=== PATIENT | male | born 1950 | race African-American/Black ===

== ENCOUNTER 2021-10-23 11:43 | Inpatient (IN) | payer OTHER ==
[2021-10-23 12:10] VITALS: BMI 31.3
[2021-10-23] MEDS ORDERED: SODIUM CHLORIDE 2,722 ML IV ONE (12:31)
[2021-10-23] MEDS ORDERED: PIPERACILLIN/TAZOB 4.5 GM 4.5 GM in DEXTROSE 5%-WATER 100 ML IVPB ONE (12:36)
[2021-10-23] MEDS ORDERED: VANCOMYCIN 1 GM in D5W (PRE-DOCKED) 1,000 MG/250 ML IVPB ONE (12:36)
[2021-10-23] MEDS ORDERED: PIPERACILLIN/TAZOB 4.5 GM 4.5 GM/100 ML BAG IVPB ONE (13:33)
[2021-10-23] MEDS ORDERED: VANCOMYCIN 1 GRAM (PRE-DOCKED) 1,000 MG/250 ML BAG IVPB ONE (13:33)
[2021-10-23 14:24] LABS: INR 1.26 (0.83-1.09); PROTHROMBIN TIME (PATIENT) 14.5 SEC (9.7-13.0)
[2021-10-23 14:27] LABS: ACTIVATED PTT 28.3 SECONDS (25.2-36.5)
[2021-10-23 14:52] LABS: LACTIC ACID 3.8 mmol/L (0.4-2.0)
[2021-10-23 14:54] LABS: HEMATOCRIT 32.5 % (35.4-49); HEMOGLOBIN 9.6 GM/dL (11.7-16.9); MCH 25.4 pg (25.7-33.7); MCHC 29.5 g/dl (32.0-35.9); MEAN CELL VOLUME 86.3 fl (80-96); MEAN PLT VOLUME 9.4 fl (7.5-11.1); PLATELET COUNT 315 10^3/uL (134-434); RBC 3.77 M/mm3 (4.00-5.60); RDW 20.1 % (11.9-15.9); WHITE BLOOD COUNT 21.2 K/mm3 (4.0-10.0)
[2021-10-23 15:05] LABS: CHLORIDE 115 mmol/L (98-107); SODIUM 148 mmol/L (136-145)
[2021-10-23 15:07] LABS: CALCIUM 9.3 mg/dL (8.5-10.1); CO2 25 mmol/L (21-32)
[2021-10-23 15:08] LABS: ALBUMIN 1.7 g/dl (3.4-5.0)
[2021-10-23 15:11] LABS: CREATININE 2.1 mg/dL (0.55-1.3); SGOT/AST 46 U/L (15-37)
[2021-10-23 15:12] LABS: BILIRUBIN,TOTAL 0.3 mg/dL (0.2-1); TOT PROT 8.4 g/dl (6.4-8.2)
[2021-10-23 15:13] LABS: ALK PHOS 170 U/L (45-117)
[2021-10-23 15:30] LABS: ANION GAP 8 MMOL/L (8-16); BLOOD UREA NITROGEN 135.3 mg/dL (7-18); GLUCOSE,RANDOM 586 mg/dL (74-106); SGPT/ALT 34 U/L (13-61)
[2021-10-23 15:37] LABS: ANISOCYTOSIS 1+; MACROCYTOSIS 1+
[2021-10-23] MEDS ORDERED: ACETAMINOPHEN 1000 MG/100 ML BAG IVPB PRN (16:11)
[2021-10-23] MEDS ORDERED: SODIUM CHLORIDE 1,000 ML IV SCH (16:15)
[2021-10-23] MEDS ORDERED: INSULIN SLIDING SCALE (NOVOLOG) 1 VIAL SQ SCH (16:30)
[2021-10-23] MEDS: PANTOPRAZOLE SODIUM 40 MG VIAL IVPUSH SCH (17:10)
[2021-10-23] MEDS ORDERED: INSULIN SLIDING SCALE (NOVOLOG) 1 VIAL SQ ONE ×2 (17:18→17:35)
[2021-10-23] MEDS ORDERED: PANTOPRAZOLE SODIUM 40 MG/100 ML BAG IVPB ONE (17:26)
[2021-10-23] MEDS: INSULIN SLIDING SCALE (NOVOLOG) 1 VIAL SQ SCH ×2 (17:42→22:45)
[2021-10-23] MEDS ORDERED: ACETAMINOPHEN INJECTION 100 ML IVPB ONE (18:29)
[2021-10-24] MEDS ORDERED: PIPERACILLIN/TAZOB 3.375 GM 3.375 GM/50 ML BAG IVPB ONE ×2 (04:22→09:27)
[2021-10-24] MEDS: PIPERACILLIN/TAZOB 3.375 GM 3.375 GM in DEXTROSE 5%-WATER - 50 ML IVPB SCH ×2 (04:38→09:31)
[2021-10-24 05:08] LABS: SARS-CoV-2 NAA Not Detected (Not Detected)
[2021-10-24 06:33] LABS: CHLORIDE 124 mmol/L (98-107); SODIUM 152 mmol/L (136-145)
[2021-10-24 06:36] LABS: CALCIUM 8.5 mg/dL (8.5-10.1)
[2021-10-24 06:37] LABS: ALBUMIN 1.5 g/dl (3.4-5.0); ANION GAP 6 MMOL/L (8-16); CO2 22 mmol/L (21-32); GLUCOSE,RANDOM 312 mg/dL (74-106)
[2021-10-24 06:40] LABS: SGOT/AST 26 U/L (15-37); SGPT/ALT 25 U/L (13-61)
[2021-10-24 06:41] LABS: BILIRUBIN,TOTAL 0.7 mg/dL (0.2-1)
[2021-10-24 06:43] LABS: HEMATOCRIT 27.1 % (35.4-49); HEMOGLOBIN 8.1 GM/dL (11.7-16.9); MCH 25.3 pg (25.7-33.7); MCHC 29.9 g/dl (32.0-35.9); MEAN CELL VOLUME 84.6 fl (80-96); MEAN PLT VOLUME 8.8 fl (7.5-11.1); PLATELET COUNT 417 10^3/uL (134-434); RBC 3.21 M/mm3 (4.00-5.60); RDW 19.8 % (11.9-15.9); WHITE BLOOD COUNT 21.4 K/mm3 (4.0-10.0)
[2021-10-24 06:50] LABS: ALK PHOS 122 U/L (45-117); BLOOD UREA NITROGEN 131.4 mg/dL (7-18)
[2021-10-24] MEDS ORDERED: SODIUM CHLORIDE 1,000 ML IV SCH ×2 (08:15→11:15)
[2021-10-24] MEDS: INSULIN SLIDING SCALE (NOVOLOG) 1 VIAL SQ SCH ×3 (08:42→18:38)
[2021-10-24] MEDS ORDERED: PANTOPRAZOLE SODIUM 40 MG/100 ML BAG IVPB ONE (09:27)
[2021-10-24] MEDS: PANTOPRAZOLE SODIUM 40 MG VIAL IVPUSH SCH (09:31)
[2021-10-24] MEDS ORDERED: COLLAGENASE CLOSTRIDIUM HIST. 30 GRAMS TUBE TP SCH (10:00)
[2021-10-24] MEDS ORDERED: MUPIROCIN 2% TOPICAL OINTMENT FOR DECOLONIZATION NS SCH (10:00)
[2021-10-24] MEDS: MEROPENEM 500 MG in DEXTROSE 5%-WATER 100 ML IVPB SCH ×2 (10:00→17:16)
[2021-10-24] MEDS ORDERED: SODIUM CHLORIDE 1,000 ML IV STA (10:34)
[2021-10-24 11:51] LABS: EPI CELLS 14 /uL (0-25.1); HYALINE CASTS 8 /uL (0-3.1); URINE APPEARANCE TURBID; URINE BACTERIA 30 /uL (0-1359); URINE BILIRUBIN NEGATIVE (NEGATIVE); URINE COLOR YELLOW; URINE GLUCOSE (UA) NEGATIVE (NEGATIVE); URINE KETONE NEGATIVE (NEGATIVE); URINE LEUK ESTERASE 3+ (NEGATIVE); URINE NITRITE NEGATIVE (NEGATIVE); URINE PROTEIN 1+ (NEGATIVE); URINE UROBILINOGEN 0.2 mg/dL (0.2-1.0); URINE WBC 4662 /uL (0-25.8)
[2021-10-24 12:31] LABS: URINE UREA NITROGEN 731 mg/dL (350-1000)
[2021-10-24 13:02] LABS: URINE RBC 4894 /uL (0-23.9); YEAST MANY (NEGATIVE)
[2021-10-24] MEDS ORDERED: DEXTROSE 5%-WATER 100 ML IVPB ONE (16:49)
[2021-10-24] MEDS ORDERED: MEROPENEM 500 MG VIAL (RESTRICTED TO ID) IVPB ONE (16:49)
[2021-10-24] MEDS ORDERED: MORPHINE SULFATE/0.9% NACL/PF 100 MG/100 ML BAG IVPB SCH (17:30)
[2021-10-24] MEDS ORDERED: CHLORHEXIDINE GLUCONATE 4% CLEANSER FOR DECOLONIZATION TP SCH (22:00)
[2021-10-25 02:40] LABS: PHOSPHOROUS 4.4 mg/dL (2.5-4.9)
[2021-10-25] MEDS: MORPHINE SULFATE/0.9% NACL/PF 100 MG/100 ML BAG IVPB SCH (11:25)
[2021-10-25] MEDS ORDERED: ACETAMINOPHEN 1000 MG/100 ML BAG IVPB ONE (12:45)
[2021-10-26] MEDS: MORPHINE SULFATE/0.9% NACL/PF 100 MG/100 ML BAG IVPB SCH ×2 (13:53→16:15)
[2021-10-26 14:26] VITALS: BP 88/43
[2021-10-26 20:34] VITALS: TEMP 99.2
[2021-10-26 20:43] VITALS: PULSE 106
== END 2021-10-27 02:25 | disposition expired | DRG 871 ==
LOC: JER 11:43 → JERBED 13:20 → JICU 10-24 11:23 → J5S 10-26 13:37
PROVIDERS: ADMIT Family Medicine; ATTEND Family Medicine
PROC: 5A1945Z Respiratory Ventilation, 24-96 Consecutive Hours (ICD-10-PCS; principal; 2021-10-23)
DX: A41.59 Other Gram-negative sepsis (principal); L89.154 Pressure ulcer of sacral region, stage 4; J96.20 Acute and chronic respiratory failure, unspecified whether with hypoxia or hypercapnia; R65.21 Severe sepsis with septic shock; J18.9 Pneumonia, unspecified organism; K56.609 Unspecified intestinal obstruction, unspecified as to partial versus complete obstruction; N17.9 Acute kidney failure, unspecified; E87.0 Hyperosmolality and hypernatremia; E87.2 Acidosis; M46.28 Osteomyelitis of vertebra, sacral and sacrococcygeal region; I46.9 Cardiac arrest, cause unspecified; E11.65 Type 2 diabetes mellitus with hyperglycemia; E11.22 Type 2 diabetes mellitus with diabetic chronic kidney disease; I10 Essential (primary) hypertension; D64.9 Anemia, unspecified; N18.9 Chronic kidney disease, unspecified; Z93.0 Tracheostomy status; I25.10 Atherosclerotic heart disease of native coronary artery without angina pectoris; E78.5 Hyperlipidemia, unspecified; M48.00 Spinal stenosis, site unspecified; E87.5 Hyperkalemia; D72.829 Elevated white blood cell count, unspecified
CPT/HCPCS: 36415; 71045-TC-FY; 80053; 81003; 82553; 82570; 82962; 83036; 83605; 83735; 84100; 84156; 84300; 84540; 85025; 85027; 85610; 85730; 87040; 87070; 87086; 87186; 87205; 93005; 93010; 94002; 99285-25; C9803-CS; G0480; U0003; U0005